=== PATIENT | male | born 1990 | race Caucasian/White ===

== ENCOUNTER 2017-09-27 13:19 | Emergency (ER) | payer OTHER ==
[~2017-09-27] VITALS: Ht 182.9 cm; Wt 62.0 kg
[2017-09-27] MEDS ORDERED: CYCL-1 PO (16:05)
[2017-09-27] MEDS ORDERED: IBUP-1986 PO (16:05)
[2017-09-27 16:18] VITALS: BP 133/79
== END 2017-09-27 16:19 | disposition home or self-care (01) ==
LOC: ER 13:20
DX: S16.1XXA Strain of muscle, fascia and tendon at neck level, initial encounter (principal); S20.212A Contusion of left front wall of thorax, initial encounter; Z72.0 Tobacco use; V43.52XA Car driver injured in collision with other type car in traffic accident, initial encounter; Y93.89 Activity, other specified; Y92.89 Other specified places as the place of occurrence of the external cause; Y99.8 Other external cause status
CPT/HCPCS: 71046; 93005; 99284